=== PATIENT | female | born 1950 | race Caucasian/White ===

== ENCOUNTER → 2016-12-16 | Outpatient (CLI) | payer OTHER ==
[~2016-12-16] MED LIST: ATACAND16 MG PO; ATACAND32 MG PO; BENICAR20 MG PO; CENTRUM SILVER1 EAC4 PO; CLEOCIN HCL150 MG PO; KEFLEX500 MG PO; MUCINEX TA600 MG/TA2 PO; VITAMIN D1000 UNIT PO; VITAMINC500 PO
== END ==
LOC: RAD 01:47
DX: Z12.31 Encounter for screening mammogram for malignant neoplasm of breast (principal)

== ENCOUNTER → 2017-06-22 | Outpatient (CLI) | payer OTHER | LOC: CAT 08:08 | DX: Z13.6 Encounter for screening for cardiovascular disorders (principal) ==

== ENCOUNTER 2017-10-07 11:51 | Emergency (ER) | payer OTHER ==
[~2017-10-07] VITALS: Ht 165.1 cm; Wt 63.5 kg
--- NOTE | ~2017-10-07 | EKG ---
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 : 1950 Requested By: Lexis Andrew Order Number: [id number] MD: Pal Cramer Measurements Intervals [place] Rate: 79 P: 11 TN: 137 QRS: 11 QRSD: 86 T: 51 QT: 371 QTc: 426 Interpretive Statements Sinus rhythm No significant abnormality Compared to ECG 02/28/2015 09:19:27 No significant change was found Electronically Signed On 10-09-2017 15:12:03 SAWMILL SUPERVISOR by Pal Cramer [email or web address] <ELECTRONICALLY SIGNED> By: Pal Cramer MD, [facility] 10/09/17 1512 [facility] Pal Cramer MD, FACC /EPI
[2017-10-07 13:05] LABS: URINE BILIRUBIN NEGATIVE (Negative); URINE BLOOD NEGATIVE (Negative); URINE CLARITY CLEAR; URINE COLOR YELLOW; URINE GLUCOSE-RANDOM* NEGATIVE (Negative); URINE KETONES NEGATIVE (Negative); URINE LEUKOCYTES-REFLEX NEGATIVE (Negative); URINE NITRITE-REFLEX NEGATIVE (Negative); URINE PROTEIN (DIPSTICK) NEGATIVE (Negative); URINE UROBILINOGEN 0.2 E.U./dl (0.2-1.0)
[2017-10-07 13:06] LABS: ABSOLUTE NEUTROPHILS 3.7 thou/uL (1.4-8.2); BASOPHILS 0.4 % (0.0-2.0); EOSINOPHILS 1.8 % (0.0-3.0); HEMATOCRIT 42.5 % (37.0-47.0); HEMOGLOBIN 14.9 gm/dL (12.0-15.0); LYMPHOCYTES 24.6 % (24.0-44.0); MCH 29.9 pg (26.0-34.0); MCHC 35.1 g/dL (28.0-37.0); MCV 85.3 fL (80.0-100.0); MONOCYTES 9.5 % (1.0-8.0); PLATELET COUNT 179 thou/uL (150-400); POLYS 63.7 % (36.0-66.0); RBC 4.98 mil/uL (4.20-5.00); RDW 12.5 % (10.5-14.5); WBC 5.8 thou/uL (4.0-11.0)
[2017-10-07 13:10] LABS: CALCIUM 9.5 mg/dL (8.5-10.1); POTASSIUM 3.2 mmol/L (3.5-5.1)
[2017-10-07 13:11] LABS: MAGNESIUM 2.1 mg/dL (1.8-2.4)
[2017-10-07 15:03] VITALS: BP 135/81
== END 2017-10-07 15:04 | disposition home or self-care (01) ==
LOC: ER 11:51
PROVIDERS: Emergency Medicine
DX: R00.2 Palpitations (principal); E86.0 Dehydration; E87.6 Hypokalemia; I10 Essential (primary) hypertension

== ENCOUNTER 2017-11-01 21:15 | Emergency (ER) | payer OTHER ==
[~2017-11-01] VITALS: Ht 165.1 cm; Wt 63.5 kg
--- NOTE | ~2017-11-01 | EKG ---
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 : 1950 Requested By: Juli Smith Order Number: [id number] MD: Pal Cramer Measurements Intervals [place] Rate: 72 P: 7 PA: 135 QRS: 5 QRSD: 90 T: 48 QT: 394 QTc: 432 Interpretive Statements Sinus rhythm Abnormal R-wave progression, early transition nonspecific ST segment abnormality Compared to ECG 10/07/2017 12:00:26 No significant changes Electronically Signed On 11-02-2017 8:13:03 CDT by Pal Cramer [email or web address] <ELECTRONICALLY SIGNED> By: Pal Cramer MD, [facility] 11/02/17812 42 42 Pal Cramer MD, [facility] /EPI
[2017-11-01 21:36] LABS: URINE BILIRUBIN NEGATIVE (Negative); URINE BLOOD NEGATIVE (Negative); URINE CLARITY CLEAR; URINE COLOR YELLOW; URINE GLUCOSE-RANDOM* NEGATIVE (Negative); URINE KETONES NEGATIVE (Negative); URINE LEUKOCYTES NEGATIVE (Negative); URINE NITRITE NEGATIVE (Negative); URINE PROTEIN (DIPSTICK) NEGATIVE (Negative); URINE SPECIFIC GRAVITY <= 1.005 (1.005-1.035); URINE UROBILINOGEN 0.2 E.U./dl (0.2-1.0)
[2017-11-01 21:50] LABS: ABSOLUTE NEUTROPHILS 4.9 thou/uL (1.4-8.2); BASOPHILS 0.5 % (0.0-2.0); EOSINOPHILS 3.1 % (0.0-3.0); HEMATOCRIT 39.3 % (37.0-47.0); HEMOGLOBIN 13.5 gm/dL (12.0-15.0); LYMPHOCYTES 19.5 % (24.0-44.0); MCH 29.7 pg (26.0-34.0); MCHC 34.4 g/dL (28.0-37.0); MCV 86.3 fL (80.0-100.0); MONOCYTES 8.6 % (1.0-8.0); PLATELET COUNT 168 thou/uL (150-400); POLYS 68.3 % (36.0-66.0); RBC 4.55 mil/uL (4.20-5.00); WBC 7.2 thou/uL (4.0-11.0)
[2017-11-01] MEDS ORDERED: TRIAMTERENE-HC1 EAC2 PO (21:51)
[2017-11-01 21:58] LABS: ANION GAP 9 mmol/L (7-16); BUN 21 mg/dL (7-18); CALCIUM 9.5 mg/dL (8.5-10.1); CHLORIDE 105 mmol/L (98-107); CO2 30 mmol/L (21-32); CREATININE 0.9 mg/dL (0.6-1.0); GLUCOSE 120 mg/dL (74-106); POTASSIUM 3.5 mmol/L (3.5-5.1); SODIUM 144 mmol/L (136-145)
[2017-11-01 22:06] LABS: ALBUMIN 3.8 g/dL (3.4-5.0); SGOT 20 U/L (15-37); SGPT 29 U/L (30-65); TOTAL BILIRUBIN 0.2 mg/dL (<0.1-1.0); TOTAL PROTEIN 7.2 g/dL (6.4-8.2); TROPONIN-I < 0.04 ng/mL (<0.06)
[2017-11-01 23:15] VITALS: BP 144/87
== END 2017-11-01 23:15 | disposition home or self-care (01) ==
LOC: ER 21:15
PROVIDERS: Physician Assistant
DX: I10 Essential (primary) hypertension (principal); R53.1 Weakness; R53.81 Other malaise; Z91.041 Radiographic dye allergy status; Z88.6 Allergy status to analgesic agent; Z88.8 Allergy status to other drugs, medicaments and biological substances; Z88.1 Allergy status to other antibiotic agents

== ENCOUNTER 2017-11-06 21:23 | Emergency (ER) | payer OTHER ==
[~2017-11-06] VITALS: Ht 165.1 cm; Wt 62.6 kg
--- NOTE | ~2017-11-06 | EKG ---
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 SILVESTRE : 1950 Requested By: Lexis Andrew Order Number: [id number] MD: Pal Cramer Measurements Intervals [place] Rate: 76 P: 13 SC: 136 QRS: 2 QRSD: 88 T: 42 QT: 380 QTc: 428 Interpretive Statements Sinus rhythm No significant abnormality Compared to ECG 11/01/2017 21:43:04 No significant change was found Electronically Signed On 11-07-2017 8:23:27 CDT by Pal Cramer [email or web address] <ELECTRONICALLY SIGNED> By: Pal Cramer MD, [facility] 11/07/17 0823 [id number] Pal Cramer MD, FACC /EPI
[~2017-11-06 21:23] MED LIST changes: +TRIAMTERENE-HC1 EAC2 PO
[2017-11-06 22:13] LABS: BASOPHILS 0.5 % (0.0-2.0); EOSINOPHILS 0.8 % (0.0-3.0); HEMATOCRIT 39.9 % (37.0-47.0); HEMOGLOBIN 13.8 gm/dL (12.0-15.0); LYMPHOCYTES 14.9 % (24.0-44.0); MCH 29.8 pg (26.0-34.0); MCHC 34.4 g/dL (28.0-37.0); MCV 86.7 fL (80.0-100.0); MONOCYTES 7.9 % (1.0-8.0); PLATELET COUNT 171 thou/uL (150-400); POLYS 75.9 % (36.0-66.0); RBC 4.61 mil/uL (4.20-5.00); RDW 12.9 % (10.5-14.5); WBC 6.6 thou/uL (4.0-11.0)
[2017-11-06 22:22] LABS: CALCIUM 9.3 mg/dL (8.5-10.1); CREATININE 0.9 mg/dL (0.6-1.0); MAGNESIUM 2.3 mg/dL (1.8-2.4); POTASSIUM 3.7 mmol/L (3.5-5.1)
[2017-11-06 23:44] LABS: URINE BILIRUBIN NEGATIVE (Negative); URINE BLOOD TRACE (Negative); URINE CLARITY CLEAR; URINE COLOR YELLOW; URINE GLUCOSE-RANDOM* NEGATIVE (Negative); URINE KETONES TRACE (Negative); URINE LEUKOCYTES-REFLEX NEGATIVE (Negative); URINE NITRITE-REFLEX NEGATIVE (Negative); URINE PROTEIN (DIPSTICK) NEGATIVE (Negative); URINE SPECIFIC GRAVITY 1.025 (1.005-1.035); URINE UROBILINOGEN 0.2 E.U./dl (0.2-1.0)
[2017-11-07 00:30] VITALS: BP 151/100
== END 2017-11-07 00:31 | disposition home or self-care (01) ==
LOC: ER 21:23
PROVIDERS: Emergency Medicine
DX: R00.0 Tachycardia, unspecified (principal); I10 Essential (primary) hypertension; Z88.1 Allergy status to other antibiotic agents